=== PATIENT | male | born 2000 | race Caucasian/White ===

== ENCOUNTER 2025-10-26 11:28 | Emergency (ER) | payer BC ==
[2025-10-26] MEDS ORDERED: HYDROcodone/Acetaminophen 5/325 mg Tablet ONE (12:48)
== END 2025-10-26 13:04 | disposition home or self-care (01) ==
LOC: ERS 11:28
DX: S42.021A Displaced fracture of shaft of right clavicle, initial encounter for closed fracture (principal); F17.210 Nicotine dependence, cigarettes, uncomplicated; F17.220 Nicotine dependence, chewing tobacco, uncomplicated; V87.8XXA Person injured in other specified noncollision transport accidents involving motor vehicle (traffic), initial encounter
CPT/HCPCS: 99284